=== PATIENT | female | born 1980 | race Caucasian/White ===

== ENCOUNTER → 2024-02-29 17:15 | Outpatient (REF) | payer OTHER, SELFPAY | LOC: HWWDC 17:15 | PROVIDERS: ATTENDING PHYSICIAN Nurse Practitioner Obstetrics & Gynecology; FAMILY PHYSICIAN Internal Medicine | DX: Z12.31 Encounter for screening mammogram for malignant neoplasm of breast (principal) | CPT/HCPCS: 77063; 77067 ==

== ENCOUNTER 2025-01-13 16:48 | Emergency (ER) | payer OTHER, SELFPAY ==
[2025-01-13 16:56] VITALS: BP 120/85
[2025-01-13 17:23] LABS: % Basophils 0.7 % (0-2); % Eosinophils 1.4 % (0-6); % Immature Granulocytes 0.1 % (0-0.5); % Lymphocytes 27.1 % (20.5-51.1); % Monocytes 6.7 % (1.7-9.3); Absolute Basophils 0.1 10^3/uL (0-0.2); Absolute Eosinophils 0.1 10^3/uL (0-0.7); Absolute Monocytes 0.5 10^3/uL (0.1-0.6); Absolute Neutrophils 4.6 10^3/uL (1.4-6.5); Hematocrit 37.6 % (37.0-47.0); Hemoglobin 12.7 g/dL (12.0-16.0); Mean Corp Hgb Conc. 33.8 g/dL (33.0-37.0); Mean Corpuscular Hgb 32.2 pg (27.0-31.0); Mean Corpuscular Volume 95.2 fL (81.0-99.0); Mean Platelet Volume 10.2 fL (7.4-10.4); Nucleated Red Blood Cells % 0 %; Platelet Count 254 10^3/uL (130-400); Red Blood Cell Count 3.95 10^6/uL (4.20-5.40); Red Cell Dist. Width 11.9 % (11.5-14.5); White Blood Cell Count 7.2 10^3/uL (4.8-10.8)
[2025-01-13 17:24] LABS: Urine Albumin Negative (Neg - Trace); Urine Bilirubin Negative (Negative); Urine Character Clear (Clear); Urine Color Yellow; Urine Glucose Negative (Negative); Urine Ketone Negative (Negative); Urine Leukocyte Negative (Negative); Urine Nitrite Negative (Negative); Urine Occult Blood Negative (Negative); Urine Urobilinogen Negative (Neg - 1+)
[2025-01-13 17:33] LABS: HCG, Serum Qualitative Screen Negative
[2025-01-13 17:38] LABS: ALT (SGPT) 35 U/L (0-35); AST (SGOT) 53 U/L (14-36); Albumin 4.2 g/dl (3.5-5.0); Alkaline Phosphatase 69 U/L (38-126); Blood Urea Nitrogen 13 mg/dl (7-17); Calcium 9.2 mg/dl (8.4-10.2); Carbon Dioxide 25 mmol/L (22-30); Chloride 101 mmol/L (98-107); Glucose 106 mg/dl (70-99); Potassium 4.4 mmol/L (3.5-5.1); Sodium 136 mmol/L (135-145); Total Bilirubin 0.5 mg/dl (0.2-1.3); Total Protein 6.5 g/dl (6.3-8.2); eGFR > 60.00
[2025-01-13 17:39] LABS: Lipase 118 U/L (23-300)
--- NOTE | 2025-01-13 18:35 | ED.GENMED ---
History of Present Illness
General
Chief Complaint: Abdominal Pain
Source: patient
Time Seen by Provider: 01/13/25 18:04
History of Present Illness
History of Present Illness:
This patient is a 44-year-old female who presents emergency department complaints of pain. She says that for the past 3 months, whenever she ovulates, she gets 'intense pain' in the left pelvic/left lower quadrant area. She saw her [employer] and was
referred for an outpatient pelvic ultrasound which she is not able to get for several weeks. She believes that she started ovulating on Monday as she developed the same pain which continues. She is frustrated because she does not have answers
which prompted her visit here. She states the pain is better with naproxen and manageable. She notes nausea but no vomiting. She denies fever, chills, vomiting, chest pain, dyspnea, vaginal discharge, urgency, dysuria, hematuria, or other
complaints. The pain is without exacerbating relieving factors or radiation
Past History
Past History
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
ED Past Surgical History: Gynecological
Social History
Tobacco: Non-smoker
Alcohol: Occasional
Drug: None
Personal:
Living: with family
Phy Exam
Physical Exam
Physical Exam:
GENERAL: Alert , in no apparent distress, extremely well-appearing
EYE: pupils equal and reactive
NECK: Supple, no significant adenopathy.
ENT: o/p clr, mmm.
CARDIAC: Regular rate and rhythm .
LUNGS: Clear breath sounds bilaterally, no acute respiratory distress, no wheezes/rales/rhonchi
ABDOMEN: Soft, mild left lower quadrant tenderness, no r/g, no cvat
NEUROLOGICAL: Alert and oriented, no focal neuro deficits
SKIN: Warm and dry, skin intact.
MUSCULOSKELETAL: No edema, well perfused.
PSYCH: Normal and appropriate interaction.
Course
Orders/Labs/Results
Orders:
Orders
01/13/25 17:00
Test Result ONCE
01/13/25 17:08
Complete Blood Count/With Diff Urgent
Comprehensive Metabolic Panel Urgent
HCG, Serum Qualitative Screen Urgent
Comment: Notify provider if positive test present
Lipase Urgent
Urinalysis Reflex To Culture Urgent
Date Specimen was Collected: 01/13/25
Time Specimen was Collected: 17:00
01/13/25 18:14
US Pelvis Only (non-obstetric) Urgent
Comment:
Reason For Exam: Left lower pain
Abnormal Lab Results
01/13/25
17:08
RBC 3.95 L 10^6/uL
(4.20-5.40)
MCH 32.2 H pg
(27.0-31.0)
Glucose 106 H mg/dl
(70-99)
AST 53 H U/L
(14-36)
01/13/25 17:08
01/13/25 17:08
Vital Signs
Initial and Last Documented VS:
Initial Vital Signs
Temp Pulse Resp BP Pulse Ox
98 F 70 20 120/85 99
01/13/25 16:56 01/13/25 16:56 01/13/25 16:56 01/13/25 16:56 01/13/25 16:56
Last Documented Vital Signs
Temp Pulse Resp BP Pulse Ox
98 F 70 20 120/85 99
01/13/25 16:56 01/13/25 16:56 01/13/25 16:56 01/13/25 16:56 01/13/25 16:56
*Critical Care Note
Total Time (30-74mins, 75-104mins- exclusive of procedures): Not Applicable
Update Note
Update Note:
Patient presents to the Emergency Department with __left lower pain with ovulation
Number and Complexity of Problems Addressed at the Encounter
� Chronic conditions affecting care:
� Acute Exacerbation and/or Progression of Chronic Illness:
� Differential Diagnosis includes: But not limited to ovulation related pain, ovarian cyst, ovarian cyst rupture, diverticulitis, etc. etc.
Amount and/or Complexity of Data to be Reviewed and Analyzed
� I performed an independent evaluation of and my interpretation is:
EKG:
CT:
Xrays:
Laboratory Studies:READ BY ME NAD
Other:us 3.0 cm benign-appearing SIMPLE CYST in the LEFT OVARY.
� Review of other/old records reveals:
� Clinical information was obtained by an independent historian: who is bedside
� Prescriptions/Medications Considered but not given:
� Further testing considered but not performed:
Risk of Complications and/or Morbidity or Mortality of Patient Management
� Social determinants of health affecting care:
� Discussion with other providers (PCP, Hospitalists, Consultants, etc):
� Escalation of care including admission/observation vs risk of discharge considered:pt well appearing declines pain meds, aware of results and import of f/u as well as reasons to rted. her exam is benign. I do not suspect more
worrisome etiology such as torsion, diverticultis, etc.
ED Attending Note
-
Portions of this chart may have been created with voice recognition software.� Occasional wrong word or��sound alike� substitutions may have occurred due to the inherent limitations of voice recognition software.
Discharge Plan
Departure
Patient Disposition: Home (Routine Discharge)
Date of Disposition: 01/13/25
Time of Disposition: 20:19
Patient with high blood pressure during this ER visit?: Yes
Condition: Good
Discharge Problem:
Ovarian cyst
Instructions: Ovarian Cyst (DC), BLOOD PRESSURE
Referrals:
Faby Serra, [Family Provider] -
Activity Restrictions/Additional Instructions:
PLEASE SEE ATTACHED ULTRASOUND AND LAB REPORT AND BRING TO YOUR DOCTOR FOR CLOSE FOLLOW UP. IF YOU DEVELOP INCREASING/NEW/PERSISTENT PAIN, FEVER, VOMITING, GET WORSE, DO NOT GET BETTER, OR OTHER WORRISOME SIGNS, GO TO THE ER IMMEDIATELY!
Interventions
Interventions:
*Risk Screen - Suicide Last Done: 01/13/25 16:56
*General Assessment Last Done: 01/13/25 16:56
*Neglect/Abuse Screening Last Done: 01/13/25 16:56
Discharge Date and Time
Print Language: [place]
== END 2025-01-13 20:55 | disposition home or self-care (01) ==
LOC: EMR 16:48
PROVIDERS: EMERGENCY PHYSICIAN Emergency Medicine; FAMILY PHYSICIAN Internal Medicine
DX: N83.292 Other ovarian cyst, left side (principal)
CPT/HCPCS: 99284; 76856; 80053; 81003; 83690; 84703; 85025